=== PATIENT | male | born 1950 | race Caucasian/White ===

== ENCOUNTER 2018-08-03 07:45 | Observation (INO) | payer MEDICARE ==
[~2018-08-03] VITALS: Ht 172.7 cm; Wt 104.3 kg
[2018-08-03] VITALS (13 sets, daily range): BP systolic 122–170; BP diastolic 59–78
[~2018-08-03 07:45] MED LIST: ASPIR 8181 MG PO; ASPIRIN325 PO; ATENOLOL 50MG T50 M1 PO; BRILINTA90 MG PO; IMDUR 30 MG TAB30 M1 PO; JANUMET 50-1,01 EACH PO; LANTUS SQ; LEVEMIR SQ; LOVAZA1000 MG PO; METANX TABLET1 EAC1 PO; METFORMIN HCL500 MG PO; NAPROSYN500 MG PO; NITROGLYCERIN0.4 MG SUBLING; OMEPRAZOLE20 MG PO; RED YEAST RICE600 M1 PO; TYLENOL325 MG PO; ZETIA10 MG PO
[2018-08-03 08:28] LABS: HEMATOCRIT 46.3 % (42.0-52.0); HEMOGLOBIN 15.6 gm/dL (14.0-18.0); MCH 31.3 pg (26.0-34.0); MCHC 33.8 g/dL (28.0-37.0); MCV 92.7 fL (80.0-100.0); MPV 10.8 fl. (7.2-11.1); RBC 4.99 mil/uL (4.50-6.00); RDW-CV 13.7 % (10.5-14.5); WBC 6.5 thou/uL (4.0-11.0)
[2018-08-03] MEDS ORDERED: LIPITOR40 MG PO (08:29)
[2018-08-03] MEDS ORDERED: CARVEDILOL3.125 MG PO (08:30)
[2018-08-03] MEDS ORDERED: NEURONTIN600 MG PO (08:31)
[2018-08-03] MEDS ORDERED: HUMALOG100 UNIT/1 SUBQ (08:33)
[2018-08-03] MEDS ORDERED: FLOMAX0.4 MG PO (08:34)
[2018-08-03] MEDS ORDERED: FISH OIL 1,001000 M2 PO (08:35)
[2018-08-03] MEDS ORDERED: UNICOMPLEX M TA1 TA1 PO (08:35)
[2018-08-03 08:36] LABS: APTT 27.8 Seconds (25.0-31.3); PROTIME 10.6 Seconds (9.20-11.50)
[2018-08-03 08:42] LABS: ANION GAP 3 mmol/L (7-16); BUN 21 mg/dL (7-18); CALCIUM 8.5 mg/dL (8.5-10.1); CHLORIDE 103 mmol/L (98-107); CO2 31 mmol/L (21-32); GLUCOSE 153 mg/dL (70-99); SODIUM 137 mmol/L (136-145)
[2018-08-03 08:46] LABS: ALBUMIN 3.6 g/dL (3.4-5.0); ALKALINE PHOSPHATASE 77 U/L (46-116); SGOT 29 U/L (15-37); SGPT 50 U/L (30-65); TOTAL BILIRUBIN 0.8 mg/dL (<0.1-1.0); TOTAL PROTEIN 6.7 g/dL (6.4-8.2)
--- NOTE | 2018-08-03 11:46 | EKG ---
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: : 1950 Requested By: Liban Trinidad Order Number: [id number] Reading MD: Liban Trinidad Measurements Intervals [place] Rate: 52 P: 67 ME: 169 QRS: 15 QRSD: 108 T: 148 QT: 425 QTc: 396 Interpretive Statements Sinus bradycardia Ventricular premature complex Borderline T abnormalities, diffuse leads No previous ECG available for comparison Electronically Signed On 08-03-2018 11:46:31 METAL BENDING MACHINE OPERATOR by Liban Trinidad [email or web address] <ELECTRONICALLY SIGNED> By: Liban Trinidad MD, [facility] 08/03/18 1146 0822 0822 Liban Trinidad MD, FACC /EPI
[2018-08-03 13:14] LABS: CHOLESTEROL 87 mg/dL (<200); HDL CHOLESTEROL 38 mg/dL (>40); LDL CHOLESTEROL 33 mg/dL (<100); TC:HDL 2.3 Ratio (Not establshd); TRIGLYCERIDE 80 mg/dL (<150); VLDL 16 mg/dL (<40)
[2018-08-03 13:26] LABS: SERUM ASSESSMENT Clear
[2018-08-03 15:34] LABS: URINE BILIRUBIN NEGATIVE (Negative); URINE BLOOD 3+ (Negative); URINE CLARITY CLEAR; URINE COLOR YELLOW; URINE GLUCOSE-RANDOM NEGATIVE (Negative); URINE KETONES NEGATIVE (Negative); URINE LEUKOCYTES NEGATIVE (Negative); URINE NITRITE NEGATIVE (Negative); URINE PROTEIN NEGATIVE (Negative); URINE SPECIFIC GRAVITY <= 1.005 (1.005-1.030); URINE UROBILINOGEN 0.2 E.U./dl (0.2-1.0)
[2018-08-03 15:45] LABS: SQUAMOUS NONE SEEN /LPF (0-3)
[2018-08-03 15:47] LABS: CRYSTALS None Seen /LPF (None Seen); MUCUS None Seen strn/LPF (None Seen); URINE RBC >20 Many /HPF (0-2)
[2018-08-03 15:48] LABS: BACTERIA None Seen /HPF (None Seen); CASTS None Seen /LPF (None Seen); URINE WBC None Seen /HPF (0-5)
--- NOTE | 2018-08-03 16:25 | EKG ---
[place] [address] ELECTROCARDIOGRAM REPORT Name: LISSET MADSEN Room: [address]R.#: [id number] Admission: 08/03/18 Attend Phys: Liban Trinidad MD, F Discharge: Date of : 46 Report #: [id number] THIS REPORT FOR: //name// 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1950 Requested By: Liban Trinidad Order Number: [id number] Reading MD: Liban Trinidad Measurements Intervals [place] Rate: 51 P: 69 PA: 162 QRS: 16 QRSD: 120 T: QT: 415 QTc: 383 Interpretive Statements Sinus bradycardia Nonspecific intraventricular conduction delay Borderline T abnormalities, diffuse leads Compared to ECG 08/03/2018 08:22:25 Ventricular premature complex(es) no longer present T-wave abnormality still present Electronically Signed On 08-03-2018 16:25:39 CIRCUIT MANAGER by Liban Trinidad [email or web address] <ELECTRONICALLY SIGNED> By: Liban Trinidad MD, [facility] 08/03/18 1625 1350 1350 Liban Trinidad MD, [facility] /EPI
--- NOTE | 2018-08-03 16:26 | EKG ---
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: : 1950 Requested By: Liban Trinidad Order Number: [id number] Naveen MD: Liban Trinidad Measurements Intervals [place] Rate: 65 P: 78 MA: 165 QRS: 15 QRSD: 100 T: 175 QT: 515 QTc: 536 Interpretive Statements Sinus rhythm Nonspecific T abnrm, anterolateral leads Prolonged QT interval Compared to ECG 08/03/2018 08:22:25 Prolonged QT interval now present Sinus bradycardia no longer present Electronically Signed On 08-03-2018 16:26:41 CURING FINISHER by Liban Trinidad [email or web address] <ELECTRONICALLY SIGNED> By: Liban Trinidad MD, [facility] 08/03/18 1626 1522 1522 Liban Trinidad MD, [facility] /EPI
--- NOTE | 2018-08-03 18:09 | CARD ---
[address] [address] CARDIAC CATH REPORT Name: LISSET MADSEN Room: [address] Conrad Das#: [id number] Admission: 08/03/18 Attend Phys: Liban Trinidad MD, F Discharge: Date of : 46 Report #: [id number] THIS REPORT FOR: //name// APPROVED REPORT Study performed: 08/03/2018 08:32:29 Patient Details Patient Status: Out-Patient Room #: The patient is a 67 year-old male Event Personnel Liban Trinidad Minute Clerk, Amber Gipson RN Information And Data Architect Analyst, Vicente Juarez (R) Monitor, Castillo Ron Winkel, Angela HAND HARDENER Monitor Procedures Performed LADONNA Place w/wo Plasty Single CIRC Indication Positive stress test, Chest pain Risk Factors Arterial Hypertension, Hypercholesterolemia, Diabetes Previous Procedures/Diagnoses Previous CABGPrevious PCI Admission/Lab Medications/Medications given during procedure Heparin Unfract. Procedure Narrative The patient was brought electively to the Cardiac Catheterization Laboratory and was prepped and draped in a sterile manner. The right femoral was infiltrated with 1% Lidocaine subcutaneous anesthesia. A 6fr Ultimum Sheath sheath was inserted into the right femoral artery. Coronary angiography was performed using coronary diagnostic catheters. The right coronary system was accessed and visualized with a Diagnostic JR4 catheter. The left coronary system was accessed and visualized with a Diagnostic JL 4 catheter. The left ventricle was accessed and visualized with a Diagnostic Angled Pig catheter. Left ventricular/Aortic Valve gradient assessed via catheter pullback. Left ventriculogram was performed in MORENO projection. Closure device was deployed with a 6 Fr Angioseal STS 6Fr. The patient tolerated the procedure well and there [place] [address] CARDIAC CATH REPORT Name: LISSET MADSEN Sofía Room: [address]#: [id number] Admission: 08/03/18 Attend Phys: Liban Trinidad MD, F Discharge: Date of : 46 Report #: [id number] procedure. There was no hematoma. JR4 catheter was used to visualize the single SVG. MARIN catheter used to visualize the MARIN graft Intraoperative Conscious Sedation Sedation start time: 10:03 Case end Time: 11:05 Fentanyl 50 mcg Versed 4 mg Fluoro Time: 9.9 minutes Dose: DAP [id number] cGycm2 2130 mGy Contrast Type and Amount: Omnipaque 180 ml Coronary Angiography The patient's coronary anatomy is left dominant. [place] Artery Percent Stenosis Patent SVG that went to the 1st marginal branch of the circumflex. The marginal artery had a 90% stenosis proximally. A sequential jump graft went to the second marginal branch. A patent MARIN graft went to the mid lad, although the distal lad had a long 90% stenosis Diagnostic Cath Left Main 40% ostial stenosis LAD 100% occluded Circumflex 30% proximal stenosis, prior to a patent stent. 90% distal stenosis prior to the posterolateral branch OM1 100% occluded OM2 100% occluded Right Coronary 100% occluded and filled by bridging colaterals Left Ventriculography The left ventricular ejection fraction is estimated to be 40-45%. Left ventricular wall motion abnormalities are present. There is 2+ mitral insufficiency. moderate hypokinesis noted of the inferior wall Hemodynamics The aortic pressure is 101/57 mmHg with a mean of 73 mmHg. The left ventricular pressure is 125/20 mmHg with a mean of mmHg. The left ventricular end diastolic pressure is 20 mmHg. There was no gradient across the aortic valve upon pullback. Pullback from the left ventricle to the aorta revealed no gradient [place] [address] CARDIAC CATH REPORT Name: LISSET MADSEN Room: [address]#: [id number] Admission: 08/03/18 Attend Phys: Liban Trinidad MD, F Discharge: Date of : 46 Report #: [id number] PCI Technique Lesion Anticoagulation was achieved with Heparin. Patient was preloaded with Plavix. Percutaneous coronary intervention was performed on the distal circumflex artery segment. The lesion stenosis prior to intervention was 90% with SHEMAR 3 flow. A 6FR XB 3.5 100CM Guide Catheter was used to engage the lm ostium. A IG: BMW 190cm Interventional Guidewire was used to cross the lesion. BALLOON DILATION A Balloon catheter Trek RX 2.5 X 8 was inserted and inflated up to 10.00atm for 11seconds. Repeat angiography revealed the following post-dilatation results: 70% stenosis. Additional Inflation: 14.00atm for 11seconds. STENT DEPLOYMENT A drug-eluting stent Xience Kalina 3.0X18mm was inserted and inflated up to 13.00atm for 15seconds. Repeat angiography revealed the following post-stent deployment results: 0% stenosis. Additional Inflation: 14.00atm for 10seconds. Additional Inflation: 17.00atm for 13seconds. advancing stent required a bmw real wire Final angiography reveals 0 % stenosis with SHEMAR 3 flow. Conclusion 1. occluded lad and rca and first 2 marginal branches of the circumflex 2. patent stent in the proximal circumflex and 90% stenosis in the distal circumflex 3. patent marin graft to the lad, although the distal lad had a long 90% stenosi 4. patent SVG to the first 2 marginal branches of the circumflex, although the first marginal branch had a proximal 90% stenosis 5. successful placement of a drug eluting stent in the distal circumflex 6. LVEF 40-45% Recommendations Cardiac Rehabilitation Referral [place] [address] CARDIAC CATH REPORT Name: LISSET MADSEN Room: [address] AnantJolly#: [id number] Admission: 08/03/18 Attend Phys: Liban Trinidad MD, F Discharge: Date of : 46 Report #: [id number] Medications Administered Clopidogrel <ELECTRONICALLY SIGNED> By: Liban Trinidad MD, FACC 08/03/181808 08 08Dalynda Trinidad MD, FAC /INF
[2018-08-04] VITALS: BP 140/61
[2018-08-04 04:00] VITALS: BP 150/69
[2018-08-04 05:30] LABS: HEMATOCRIT 45.4 % (42.0-52.0); HEMOGLOBIN 15.3 gm/dL (14.0-18.0); MCH 31.5 pg (26.0-34.0); MCHC 33.6 g/dL (28.0-37.0); MCV 93.8 fL (80.0-100.0); MPV 10.7 fl. (7.2-11.1); RBC 4.84 mil/uL (4.50-6.00); RDW-CV 13.6 % (10.5-14.5); WBC 7.5 thou/uL (4.0-11.0)
[2018-08-04 05:52] LABS: CREATININE 1.3 mg/dL (0.6-1.3); TROPONIN-I LEVEL 0.35 ng/mL (<0.06)
[2018-08-04 08:00] VITALS: BP 143/78
[2018-08-04] MEDS ORDERED: PLAVIX 75 MG TA75 M1 PO (10:26)
[2018-08-04 11:21] VITALS: BP 145/78
--- NOTE | 2018-08-04 14:34 | EKG ---
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: : 1950 Requested By: Liban Trinidad Order Number: [id number] Reading MD: Ran Negrete Measurements Intervals [place] Rate: 53 P: 53 IA: 165 QRS: 13 QRSD: 100 T: 163 QT: 403 QTc: 379 Interpretive Statements Sinus rhythm Nonspecific T abnormalities, lateral leads Compared to ECG 08/03/2018 15:22:17 T-wave abnormality now present Prolonged QT interval no longer present Electronically Signed On 08-04-2018 14:33:41 HEAD ATHLETIC TRAINER/STRENGTH COACH by Ran Negrete [email or web address] <ELECTRONICALLY SIGNED> By: Ran Negrete MD, FAC 08/04/18 1433 2 2 Ran Negrete MD, [facility] /EPI
--- NOTE | 2018-08-04 15:03 | SHORT ---
[address] [address] SHORT STAY SUMMARY Name: LISSET MADSEN Room: [address] Conrad Das#: [id number] Admission: 08/03/18 Attend Phys: Liban Trinidad MD, F Discharge: 08/04/18 Date of : 46 Report #: [id number] THIS REPORT FOR: //name// CC: FELIX LOZANO DO Felix Trinidad DATE OF SERVICE: 08/04/2018 DISCHARGE DIAGNOSES: 1. Crescendo angina. 2. Coronary artery disease. 3. Cardiomyopathy. 4. Diabetes. 5. Hyperlipidemia. 6. Sleep apnea. CONSULTANTS: None. PROCEDURES: Left heart catheterization with stenting of the circumflex artery via the femoral approach. HISTORY OF PRESENT ILLNESS: The patient is a 67-year-old white male who was brought to the outpatient department to undergo repeat cardiac catheterization. The patient had previous triple vessel coronary artery bypass surgery in 1984 in [place], [place]. I performed a repeat cardiac catheterization in 2014 and placed a stent in his circumflex artery. Recently, he noticed occasional chest pain requiring nitroglycerin. He denied any significant shortness of breath or syncope. I saw him in the office on 07/13 and recommended nuclear stress test. This was performed in [place], [place] on 07/21. Results showed a moderate size reversible inferolateral defect with partial fixed defect consistent with previous infarction with some katelyn-infarct ischemia. Ejection fraction was 35%. Because of his frequent chest pain and abnormal Cardiolite, I recommended repeat cardiac catheterization. PAST MEDICAL HISTORY: Otherwise significant for diabetes, hypertension, hyperlipidemia, sleep apnea. Previous carotid Doppler study showed less than 50% stenosis. He has a history of lymphoma, previously treated. He has chronic shoulder pain that might require shoulder surgery. MEDICATIONS: Consist of aspirin, carvedilol, Neurontin, insulin, Imdur, Prinivil, Glucophage, and Flomax. ALLERGIES: He had no [place] [address] SHORT STAY SUMMARY Name: LISSET MADSEN Room: [address]#: [id number] Admission: 08/03/18 Attend Phys: Liban Trinidad MD, F Discharge: 08/04/18 Date of : 46 Report #: [id number] PHYSICAL EXAMINATION: VITAL SIGNS: Blood pressure 120/60, pulse 60. CHEST: Clear to auscultation. CARDIAC: Regular rate and rhythm. ABDOMEN: Soft. EXTREMITIES: No edema. SKIN: Warm and dry. DIAGNOSTIC DATA: His ECG showed a sinus rhythm with PVC, nonspecific T-wave changes. LABORATORY DATA: Sodium 137, BUN 21, creatinine 1.3. Liver function studies were normal. Cholesterol is 87, triglyceride 80, HDL 38, LDL 33. White blood cell count 6.5, hemoglobin 15.6. HOSPITAL COURSE: The patient was brought to the outpatient department. I performed left heart catheterization from right femoral artery. Results showed an ejection fraction of 40%-45%. The LAD was chronically occluded. There appeared to be a 40% narrowing of the left main artery. The marginal branches of the circumflex were occluded. The stent in the proximal circumflex had no restenosis. However, there was a new 90% discrete narrowing in the distal circumflex prior to the codominant posterolateral branch. The nondominant right coronary artery is chronically occluded. The MARIN graft is patent to the LAD, although the distal LAD had a long 90% narrowing. There was a single vein graft. It went to the first and second marginal branches. The vein graft is widely patent. However, the first marginal branch had a proximal 90% stenosis. I then placed a single drug-eluting stent in the distal circumflex. He tolerated the procedure well. An Angio-Seal was placed in the right femoral artery. He had no significant chest pain, ECG changes or arrhythmias following the procedure. The following day, there was no hematoma in the groin after placing the Angio-Seal. Prior to discharge, the patient is ambulating, had no further complaints. At the time of discharge, he had blood pressure of 140/60, pulse 68. He is afebrile. Followup ECG showed a sinus rhythm with nonspecific T-wave changes, but no change from preprocedure ECG. Followup lab work included a creatinine of 1.3. Troponin was elevated at 0.35. Followup hemoglobin was 15.3 after the patient was given heparin during the procedure. He was loaded with Plavix at the time of the stent. The patient was discharged to continue his home medications that consist of aspirin 81 mg a day, carvedilol 3.125 mg twice a day. I would not increase the dose because of bradycardia. He was to continue his Neurontin, his insulin, Imdur 60 mg a day, Prinivil 5 mg a day. He was not to resume his metformin for 48 hours after the procedure. He has nitroglycerin as needed for chest pain, Flomax 0.4 mg a day and following his stent, he was placed on Plavix 75 mg a day, which he would take for at least 1 year following placement of the drug-eluting stent. Results of the procedure were discussed with the patient. He was felt to have a significant new stenosis in the circumflex. However, he also had disease in the apical LAD [place] [address] SHORT STAY SUMMARY Name: LISSET MADSEN Room: [address] Conrad Das#: [id number] Admission: 08/03/18 Attend Phys: Liban Trinidad MD, F Discharge: 08/04/18 Date of : 46 Report #: [id number] marginal branch of circumflex that did not appear to be readily amenable to stenting. I suspect he will continue to have occasional chest pain. I did recommend he enroll in cardiac rehabilitation at [facility]. He was discharged to return to care of Dr. Lozano for routine medical care including management of his diabetes. He was to continue CPAP for his sleep apnea. I plan on seeing him in the Cardiology Clinic in 6 weeks for followup. I did recommend that he wait at least 3 months following stenting prior to considering elective surgery for his shoulder. He is not to hold his Plavix nor aspirin prior to that time. He was to contact my office again with increasing shortness of breath or chest pain. He will continue to see his oncologist for followup of his lymphoma. <ELECTRONICALLY SIGNED> By: Liban Trinidad MD, [facility] 08/04/18 1503 0731 [id number] Trinidad MD, FACC /nt
== END 2018-08-04 12:00 | disposition home or self-care (01) ==
LOC: M.CL 07:45 → M.TBA-CV 11:59 → M.2W 12:58
PROVIDERS: ADMIT Internal Medicine Cardiovascular Disease
DX: I25.110 Atherosclerotic heart disease of native coronary artery with unstable angina pectoris (principal); I42.9 Cardiomyopathy, unspecified; E11.9 Type 2 diabetes mellitus without complications; E78.5 Hyperlipidemia, unspecified; G47.30 Sleep apnea, unspecified; I65.29 Occlusion and stenosis of unspecified carotid artery; G89.29 Other chronic pain; M25.511 Pain in right shoulder; Z79.899 Other long term (current) drug therapy; Z79.4 Long term (current) use of insulin; Z85.72 Personal history of non-Hodgkin lymphomas